=== PATIENT | female | born 1970 | race African-American/Black ===

== ENCOUNTER 2016-08-15 10:03 | Observation (INO) | payer MEDICAID, OTHER ==
[~2016-08-15] VITALS: Ht 160 cm; Wt 89.0 kg
[~2016-08-15 10:03] MED LIST: GABA300C3 PO; LEVE500 PO; MECL25 PO; MELO15 PO; ONDA4 PO; ZOLO50TA PO
[2016-08-15 10:05] VITALS: BP 128/62; PULSE 79; RESP 16; TEMP 97.9; O2SAT 98
[2016-08-15] MEDS ORDERED: SODIUM CHLOR 0.9% 1000 ML INJ 1,000 ML IV ONE (10:25)
[2016-08-15] MEDS ORDERED: ONDANSETRON HCL 4 MG/2 ML VIAL IVP ONE (10:30)
[2016-08-15] MEDS ORDERED: methylPREDNISolone SO SUCC INJ 500 MG in DEXTROSE 5% IN WATER 100ML INJ 100 ML IV ONE ×2 (10:30)
[2016-08-15] MEDS ORDERED: SODIUM CHLORIDE 0.9% FLUSH 10 ML FLUSH IVF PRN (10:30)
--- NOTE | 2016-08-15 10:32 | PD ---
HPI Chief Complaint: Numbness/Tingling Time Seen by Provider: 10:11 Travel History International Travel<30 days: No Contact w/Intl Traveler<30days: No Traveled to known affect area: No History of Present Illness HPI The patient is a 46-year-old [place] female who presents emergency department with multiple complaints. The patient states she was diagnosed with multiple sclerosis last year at [facility] in [facility]. The patient states she is advised to follow-up with a neurologist, however, has been unable to see a neurologist with her insurance. The patient was filling out paperwork earlier today, and an attempt to get in and see specialists for her multiple sclerosis and lupus, and she developed recurrent symptoms. The patient complains of numbness and tingling to the upper and lower extremities, back pain that goes from the thoracic to lumbar region, and headache. She also complains of intermittent visual problems. The patient had similar symptoms last year was seen at [facility], where she had an MRI of multiple blood test performed. The patient is on medications for seizures, neuropathy, and depression, but takes no current medications for multiple sclerosis or lupus. The patient states she was recently diagnosed with lupus at [facility]. The patient denies any urinary or fecal incontinence. The patient denies current chest pain, pressure breath, nausea, vomiting, or abdominal pain. She does complain of a mild throbbing headache. PFSH Past Medical History Narrative Medical Multiple sclerosis, lupus, seizures, neuropathy, depression Heart Rhythm Problems: No Cardiac Catheterization: No Cardiovascular Problems: No High Cholesterol: No Congestive Heart Failure: No Diabetes: No Diminished Hearing: No Hypertension: No Myocardial Infarction: No Seizures: Yes ?: Not LMP: 08/12/16 : 3 Para: 2 Miscarriage: 1 Past Surgical History Coronary Artery Bypass Graft: No Gynecologic Surgery: Yes (A SURG TO PREVENT PREGNACY) Social History Alcohol Use: No Tobacco Use: Yes Substance Use: No Allergies-Medications (Allergen,Severity, Reaction): Coded Allergies: No Known Allergies (Verified , 12/08/12) Reported Meds & Prescriptions Reported Meds & Active Scripts Active Review of Systems Except as stated in HPI: all other systems reviewed are Neg General / Constitutional: No: Fever Eyes: Positive: Blurred Vision (intermittent) HENT: Positive: Headaches, Vertigo, Lightheadedness Cardiovascular: No: Chest Pain or Discomfort Respiratory: No: Wheezing Gastrointestinal: No: Nausea, Vomiting, Abdominal Pain Genitourinary: No: Incontinence Musculoskeletal: Positive: Weakness Neurologic: Positive: Weakness, Dizziness, Headache, Paresthesia, Sensory Disturbance, No: Change in Mentation, Slurred Speech Psychiatric: Positive: Depression Physical Exam Narrative GENERAL: Awake, alert, 46-year-old female appears her stated age and is in no acute respiratory distress. SKIN: Focused skin assessment warm/dry. HEAD: Atraumatic. Normocephalic. EYES: Pupils equal and round. Pupils are 4 mm bilateral and reactive. ENT: No nasal bleeding or discharge. Mucous membranes pink and moist. NECK: Trachea midline. No JVD. Patient is able to place her chin to her chest as well as rotate to left and right. No meningeal signs. CARDIOVASCULAR: Regular rate and rhythm. No murmur appreciated. RESPIRATORY: No accessory muscle use. Clear to auscultation. Breath sounds equal bilaterally. GASTROINTESTINAL: Abdomen soft, non-tender, nondistended. No rebound tenderness. Back: Mild tenderness over the mid lumbar and thoracic vertebrae, no obvious step-off. Tattoo noted over the lower back. MUSCULOSKELETAL: No obvious deformities. No clubbing. No cyanosis. No edema. Strength with flexion of the great toes bilateral is 4+5. Plantar flexion is 5/ 5. Extension knees is 5/5. Flexion of the hips bilaterals 5/5. Electrician Wiring strength is 5+5. Extension of the elbows is 5+5, flexion of the elbows is 5/5 bilaterally. NEUROLOGICAL: Awake and alert. No obvious cranial nerve deficits. Motor grossly within normal limits. Normal speech. PSYCHIATRIC: Appropriate mood and affect; insight and judgment normal. Data Data Last Documented VS Vital Signs Date Time Temp Pulse Resp B/P Pulse Ox O2 Delivery O2 Flow Rate FiO2 08/15/16 10:59 98.3 68 20 118/69 100 Orders Electrocardiogram (08/15/16 10:25) Complete Blood Count With Diff (08/15/16 10:25) Comprehensive Metabolic Panel (08/15/16 10:25) Magnesium (Mg) (08/15/16 10:25) Ckmb (Isoenzyme) Profile (08/15/16 10:25) Troponin I (08/15/16 10:25) Urinalysis - C+S If Indicated (08/15/16 10:25) Ecg Monitoring (08/15/16 10:25) Iv Access Insert/Monitor (08/15/16 10:25) Oximetry (08/15/16 10:25) Ondansetron Inj (Zofran Inj) (08/15/16 10:30) Sodium Chloride 0.9% Flush (Ns Flush) (08/15/16 10:30) Sodium Chlor 0.9% 1000 Ml Inj (Ns 1000 M (08/15/16 10:25) Westergren Sedimentation Rate (08/15/16 10:25) Methylprednisolone So Succ Inj (Solumedr (08/15/16 10:30) CKMB (08/15/16 10:25) CKMB% (08/15/16 10:25) Mri Brain W&W/O Contrast (08/15/16 ) Consult Neurology (08/15/16 ) Admit Order (Ed Use Only) (08/15/16 12:03) Labs Laboratory Tests Test 08/15/16 08/15/16 10:25 11:00 White Blood Count 8.0 TH/MM3 Red Blood Count 4.71 MIL/MM3 Hemoglobin 12.5 GM/DL Hematocrit 38.0 % Mean Corpuscular Volume 80.7 FL Mean Corpuscular Hemoglobin 26.5 PG Mean Corpuscular Hemoglobin 32.8 % Concent Red Cell Distribution Width 15.1 % Platelet Count 318 TH/MM3 Mean Platelet Volume 7.6 FL Neutrophils (%) (Auto) 46.2 % Lymphocytes (%) (Auto) 43.8 % Monocytes (%) (Auto) 8.4 % Eosinophils (%) (Auto) 0.7 % Basophils (%) (Auto) 0.9 % Neutrophils # (Auto) 3.7 TH/MM3 Lymphocytes # (Auto) 3.5 TH/MM3 Monocytes # (Auto) 0.7 TH/MM3 Eosinophils # (Auto) 0.1 TH/MM3 Basophils # (Auto) 0.1 TH/MM3 CBC Comment DIFF FINAL Differential Comment Erythrocyte Sedimentation Rate 19 mm/hr Sodium Level 139 MEQ/L Potassium Level 4.1 MEQ/L Chloride Level 105 MEQ/L Carbon Dioxide Level 26.7 MEQ/L Anion Gap 7 MEQ/L Blood Urea Nitrogen 13 MG/DL Creatinine 1.00 MG/DL Estimat Glomerular Filtration 73 ML/MIN Rate Random Glucose 99 MG/DL Calcium Level 9.2 MG/DL Magnesium Level 1.8 MG/DL Total Bilirubin 0.3 MG/DL Aspartate Amino Transf 18 U/L (AST/SGOT) Alanine Aminotransferase 23 U/L (ALT/SGPT) Alkaline Phosphatase 79 U/L Total Creatine Kinase 131 U/L Creatine Kinase MB 0.9 NG/ML Troponin I LESS THAN 0.02 NG/ML Total Protein 7.7 GM/DL Albumin 3.6 GM/DL Human Chorionic Gonadotropin, LESS THAN 1 Quant MIU/ML Urine Color YELLOW Urine Turbidity CLEAR Urine pH 5.0 Urine Specific [place] 1.018 Urine Protein NEG mg/dL Urine Glucose (UA) NEG mg/dL Urine Ketones NEG mg/dL Urine Occult Blood NEG Urine Nitrite NEG Urine Bilirubin NEG Urine Urobilinogen LESS THAN 2.0 MG/DL Urine Leukocyte Esterase NEG Urine RBC LESS THAN 1 /hpf Urine WBC 1 /hpf Urine Mucus FEW /lpf Microscopic Urinalysis Comment CULT NOT INDICATED Urine Opiates Screen POS Urine Barbiturates Screen NEG Urine Amphetamines Screen NEG Urine Benzodiazepines Screen NEG Urine Cocaine Screen NEG Urine Cannabinoids Screen NEG MDM Medical Decision Making Medical Screen Exam Complete: Yes Emergency Medical Condition: Yes Medical Record Reviewed: Yes Interpretation(s) EKG reveals normal sinus rhythm with a rate of 64. No ischemic changes or ectopy noted. Laboratory Tests Test 08/15/16 08/15/16 10:25 11:00 White Blood Count 8.0 TH/MM3 Red Blood Count 4.71 MIL/MM3 Hemoglobin 12.5 GM/DL Hematocrit 38.0 % Mean Corpuscular Volume 80.7 FL Mean Corpuscular Hemoglobin 26.5 PG Mean Corpuscular Hemoglobin 32.8 % Concent Red Cell Distribution Width 15.1 % Platelet Count 318 TH/MM3 Mean Platelet Volume 7.6 FL Neutrophils (%) (Auto) 46.2 % Lymphocytes (%) (Auto) 43.8 % Monocytes (%) (Auto) 8.4 % Eosinophils (%) (Auto) 0.7 % Basophils (%) (Auto) 0.9 % Neutrophils # (Auto) 3.7 TH/MM3 Lymphocytes # (Auto) 3.5 TH/MM3 Monocytes # (Auto) 0.7 TH/MM3 Eosinophils # (Auto) 0.1 TH/MM3 Basophils # (Auto) 0.1 TH/MM3 CBC Comment DIFF FINAL Differential Comment Erythrocyte Sedimentation Rate 19 mm/hr Sodium Level 139 MEQ/L Potassium Level 4.1 MEQ/L Chloride Level 105 MEQ/L Carbon Dioxide Level 26.7 MEQ/L Anion Gap 7 MEQ/L Blood Urea Nitrogen 13 MG/DL Creatinine 1.00 MG/DL Estimat Glomerular Filtration 73 ML/MIN Rate Random Glucose 99 MG/DL Calcium Level 9.2 MG/DL Magnesium Level 1.8 MG/DL Total Bilirubin 0.3 MG/DL Aspartate Amino Transf 18 U/L (AST/SGOT) Alanine Aminotransferase 23 U/L (ALT/SGPT) Alkaline Phosphatase 79 U/L Total Creatine Kinase 131 U/L Creatine Kinase MB 0.9 NG/ML Troponin I LESS THAN 0.02 NG/ML Total Protein 7.7 GM/DL Albumin 3.6 GM/DL Human Chorionic Gonadotropin, LESS THAN 1 Quant MIU/ML Urine Color YELLOW Urine Turbidity CLEAR Urine pH 5.0 Urine Specific [place] 1.018 Urine Protein NEG mg/dL Urine Glucose (UA) NEG mg/dL Urine Ketones NEG mg/dL Urine Occult Blood NEG Urine Nitrite NEG Urine Bilirubin NEG Urine Urobilinogen LESS THAN 2.0 MG/DL Urine Leukocyte Esterase NEG Urine RBC LESS THAN 1 /hpf Urine WBC 1 /hpf Urine Mucus FEW /lpf Microscopic Urinalysis Comment CULT NOT INDICATED Urine Opiates Screen POS Urine Barbiturates Screen NEG Urine Amphetamines Screen NEG Urine Benzodiazepines Screen NEG Urine Cocaine Screen NEG Urine Cannabinoids Screen NEG Last Impressions Thoracic Spine MRI 08/15/16 Signed Impressions: Service Date/Time: Monday, August 15, 2016 14:34 - CONCLUSION: 1. No focal signal abnormality or enhancement within the thoracic cord to suggest demyelinating plaque formation. 2. Mild chronic compression deformity involving T8. Ronald Maurice MD Cervical Spine MRI 08/15/16 0000 Signed Impressions: Service Date/Time: Monday, August 15, 2016 14:34 - CONCLUSION: 1. No acute disease. 2. No focal signal abnormalities or areas of abnormal enhancement to suggest demyelinating plaques within the cervical cord. Ronald Maurice MD Brain MRI 08/15/16 0000 Signed Impressions: Service Date/Time: Monday, August 15, 2016 14:34 - CONCLUSION: 1. No acute intracranial abnormality identified. 2. No significant, abnormal T2 signal identified within the white matter. Sadiq Gordon MD Differential Diagnosis Differential diagnosis includes multiple sclerosis exacerbation, lupus exacerbation, neuropathy, UTI, hyponatremia, hypocalcemia, hyperkalemia, hypokalemia, hyperkalemia. Narrative Course IV was established, labs are drawn and sent, and the patient was placed on cardiac telemetry monitoring and continuous pulse oximetry monitoring. EKG was ordered and interpreted. We attempted to obtain MRI results from [facility]. The patient was administered Solu-Medrol 500 mg intravenously. Laboratory evaluation is unremarkable. MRI results from [facility] reveal abnormal white matter signal change that recommended repeat MRI 1 year. A call was placed to the on-call neurologist and I discussed the patient with Dr. Mello. The patient's sedimentation rate is normal at 19, I doubt lupus exacerbation, patient's symptoms may be secondary to multiple sclerosis exacerbation. After discussion with the on-call hospitalist, as agreed MRI would be ordered. Physician Communication Physician Communication I discussed the patient with Dr. Flanagan who agrees with admission. Diagnosis Primary Impression: Paresthesia and pain of both upper extremities Admitting Information Admitting Physician Requests: Admit Condition: Stable Jorge Preciado MD August 15, 2016 10:32
[2016-08-15 10:45] LABS: AUTOMATED NEUTROPHIL # 3.7 TH/MM3 (1.8-7.7); BASOPHIL # 0.1 TH/MM3 (0-0.2); BASOPHIL % 0.9 % (0.0-2.0); EOSINOPHIL # 0.1 TH/MM3 (0-0.4); EOSINOPHIL % 0.7 % (0.0-4.0); HEMO FLAGS DIFF FINAL; LYMPH % 43.8 % (9.0-44.0); LYMPHOCYTE # 3.5 TH/MM3 (1.0-4.8); MEAN CELL VOLUME 80.7 FL (80.0-100.0); MEAN CORPUSCULAR HEMOGLOBIN 26.5 PG (27.0-34.0); MEAN CORPUSCULAR HGB CONC 32.8 % (32.0-36.0); MONO % 8.4 % (0.0-8.0); NEUT % 46.2 % (16.0-70.0); PLATELET COUNT 318 TH/MM3 (150-450); RED BLOOD COUNT 4.71 MIL/MM3 (4.00-5.30); RED CELL DISTRIBUTION WIDTH 15.1 % (11.6-17.2)
[2016-08-15 10:59] VITALS: BP 118/69; PULSE 68; RESP 20; TEMP 98.3; O2SAT 100
[2016-08-15 11:10] LABS: ANION GAP 7 MEQ/L (5-15); AST (GOT) 18 U/L (15-37); BICARBONATE 26.7 MEQ/L (21.0-32.0); BLOOD UREA NITROGEN 13 MG/DL (7-18); CHLORIDE 105 MEQ/L (98-107); GLOMERULAR FILTRATION RATE 73 ML/MIN (>89); MAGNESIUM 1.8 MG/DL (1.5-2.5); POTASSIUM 4.1 MEQ/L (3.5-5.1); SODIUM (NA) 139 MEQ/L (136-145)
[2016-08-15 11:11] LABS: BLOOD, URINE NEG (NEG); COMMENT (UR) CULT NOT INDICATED; CULTURE IF INDICATED CULT NOT INDICATED; GLUCOSE,URINE NEG (NEG); KETONE, URINE NEG (NEG); MUCUS URINE FEW /lpf (OCC); NITRITE,URINE NEG (NEG); URINE COLOR YELLOW (YELLW/STRAW)
[2016-08-15 11:14] LABS: ALKALINE PHOSPHATASE 79 U/L (45-117); ALT (GPT) 23 U/L (10-53); CREATINE KINASE 131 U/L (26-192); TOTAL BILIRUBIN ADULT 0.3 MG/DL (0.2-1.0)
[2016-08-15 11:26] LABS: CKMB 0.9 NG/ML (0.5-3.6)
[2016-08-15 14:03] VITALS: BP 120/58; PULSE 58; RESP 16; TEMP 97.8; O2SAT 100
--- NOTE | 2016-08-15 14:40 | HHI.HP ---
[facility]Staff Admission Diagnosis multiple sclerosis exacerbation, generalized weakness Diagnoses: Chief Complaint: generalized aches, tingling /numbness. weakness, pain Travel History International Travel<30 Days: No Contact w/Intl Traveler <30 Da: No Traveled to Known Affected Are: No History of Present Illness patient is a 46 years old female from [place] who for the past 21/2 weeks now has been complaining of feeling of fatigue, generalized weakness, headaches , back pain from neck down associated with tingling and numbness worse when she tries to move around and get active. . Unclear why. Denies previous trauma. She was seen in the past -in 2014 at [facility]. She was DC with OP ff up but the neurologist does not take her insurance. She had EEG done, MRI brain shows findings suggestive of demyelination process , diagnosed with seizure disorder, neuropathy and depression - was placed on Gabapentin, Keppra. Ondansetron, Sertraline and at one point was also on Vimpat. Last seizure was 2 years ago. Baseline states she is ambulatory and occasionally uses a cane. she denies any urinary or fecal incontinence, or any myelopathy MRI then shows findings suggestive of demyelination lesion Lately past week with worsening numbness and tingling and low back discomfort which prompted to come in here and admitted for further work up and evaluation. Does not recall being placed on steroids in the past Review of Systems Constitutional: DENIES: Diaphoretic episodes, Fatigue, Fever, Weight gain, Weight loss, Chills, Dizziness, Change in appetite, Night Sweats Endocrine: COMPLAINS OF: Abnorml menstrual pattern (irregular cycles) Eyes: COMPLAINS OF: Blurred vision (?) Ears, nose, mouth, throat: DENIES: Tinnitus, Hearing loss, Vertigo, Nasal discharge, Oral lesions, Throat pain, Hoarseness, Ear Pain, Running Nose, Epistaxis, Sinus Pain, Toothache, Odynophagia Respiratory: DENIES: Apneas, Cough, Snoring, Wheezing, Hemoptysis, Sputum production, Shortness of breath Cardiovascular: DENIES: Chest pain, Palpitations, Syncope, Dyspnea on Exertion , PND, Lower Extremity Edema, Orthopnea, Claudication Gastrointestinal: DENIES: Abdominal pain, Black stools, Bloody stools, Constipation, Diarrhea, Nausea, Vomiting, Difficulty Swallowing, Anorexia Genitourinary: DENIES: Abnormal vaginal bleeding, Dysmenorrhea, Dyspareunia, Sexual dysfunction, Urinary frequency, Urinary incontinence, Urgency, Hematuria , Dysuria, Nocturia, Vaginal discharge Musculoskeletal: COMPLAINS OF: Muscle aches, Back pain Integumentary: DENIES: Abnormal pigmentation, Pruritus, Rash, Nail changes, Breast masses, Breast skin changes, Nipple discharge Hematologic/lymphatic: DENIES: Bruising, Lymphadenopathy Immunologic/allergic: DENIES: Eczema, Urticaria Neurologic: COMPLAINS OF: Seizures (+ hsitory) Psychiatric: COMPLAINS OF: Depression (+ hsitory) Past Family Social History Past Medical History depression seizure disorder ? MS neuropathy Past Surgical History no major surgeries Reported Medications gabapentin 300 mg tid Keppra 500 mg bid Ondanzetron tid Sertraline 25 mg po daily states at one point was on vimpat Allergies: Coded Allergies: No Known Allergies (Verified , 12/08/12) Family History + for DM, HTN Social History smokes about 1 pack oper day very occasional alcohol use occasionally- edible marijuana Physical Exam Vital Signs Vital Signs Date Time Temp Pulse Resp B/P Pulse Ox O2 Delivery O2 Flow Rate FiO2 08/15/16 14:03 16 100 Room Air 08/15/16 14:03 97.8 58 16 120/58 100 Room Air 08/15/16 10:59 98.3 68 20 118/69 100 08/15/16 10:05 97.9 79 16 128/62 98 Physical Exam GENERAL: in no apparent distress. SKIN: No rashes, ecchymoses or lesions. Cool and dry. HEAD: Atraumatic. Normocephalic. No temporal or scalp tenderness. EYES: Pupils equal round and reactive. Extraocular motions intact. No scleral icterus. No injection or drainage. ENT: Nose without bleeding, Throat without erythema,. Uvula midline. Airway patent. NECK: Trachea midline. No JVD or lymphadenopathy. Supple, nontender, no meningeal signs. CARDIOVASCULAR: Regular rate and rhythm without murmurs, gallops, or rubs. RESPIRATORY: Clear to auscultation. Breath sounds equal bilaterally. No wheezes , rales, or rhonchi. GASTROINTESTINAL: Abdomen soft, non-tender, nondistended. No hepato-splenomegaly , or palpable masses. No guarding. MUSCULOSKELETAL: Extremities without clubbing, cyanosis, or edema. No joint tenderness, effusion, or edema noted. No calf tenderness. Negative Homans sign bilaterally. NEUROLOGICAL: Awake and alert. Cranial nerves II through XII intact. Moves all extremities spontaneously. Normal speech. Steady gait, DTRs+ grossly no sensory deficits Laboratory Laboratory Tests Test 08/15/16 08/15/16 10:25 11:00 White Blood Count 8.0 Red Blood Count 4.71 Hemoglobin 12.5 Hematocrit 38.0 Mean Corpuscular Volume 80.7 Mean Corpuscular Hemoglobin 26.5 Mean Corpuscular Hemoglobin 32.8 Concent Red Cell Distribution Width 15.1 Platelet Count 318 Mean Platelet Volume 7.6 Neutrophils (%) (Auto) 46.2 Lymphocytes (%) (Auto) 43.8 Monocytes (%) (Auto) 8.4 Eosinophils (%) (Auto) 0.7 Basophils (%) (Auto) 0.9 Neutrophils # (Auto) 3.7 Lymphocytes # (Auto) 3.5 Monocytes # (Auto) 0.7 Eosinophils # (Auto) 0.1 Basophils # (Auto) 0.1 CBC Comment DIFF FINAL Differential Comment Erythrocyte Sedimentation Rate 19 Sodium Level 139 Potassium Level 4.1 Chloride Level 105 Carbon Dioxide Level 26.7 Anion Gap 7 Blood Urea Nitrogen 13 Creatinine 1.00 Estimat Glomerular Filtration 73 Rate Random Glucose 99 Calcium Level 9.2 Magnesium Level 1.8 Total Bilirubin 0.3 Aspartate Amino Transf 18 (AST/SGOT) Alanine Aminotransferase 23 (ALT/SGPT) Alkaline Phosphatase 79 Total Creatine Kinase 131 Creatine Kinase MB 0.9 Troponin I LESS THAN 0.02 Total Protein 7.7 Albumin 3.6 Urine Color YELLOW Urine Turbidity CLEAR Urine pH 5.0 Urine Specific [place] 1.018 Urine Protein NEG Urine Glucose (UA) NEG Urine Ketones NEG Urine Occult Blood NEG Urine Nitrite NEG Urine Bilirubin NEG Urine Urobilinogen LESS THAN 2.0 Urine Leukocyte Esterase NEG Urine RBC LESS THAN 1 Urine WBC 1 Urine Mucus FEW Microscopic Urinalysis Comment CULT NOT INDICATED Result Diagram: 08/15/16 1025 08/15/16 1025 Assessment and Plan Assessment and Plan 46 years old female with complains of Paresthesias- neuropathy, tingling numbness of Upper and lower extremities- chronic worsening over 21/2 weeks - ? history of MS get an MRI of brain and spines. Neurology consult and will hold off on steroids for now.and will wait for Dr. Mitchell's evaluation and recommendation get a PT consult for formal evaluation History of Seizure disorder. continue on Keppra, Gabapentin History of depression. continue on Sertraline d/w patient work up PT consult ? Discussed Condition With patient Isauro Flanagan MD August 15, 2016 14:40 Isauro Flanagan MD August 15, 2016 14:40
[2016-08-15 15:07] LABS: BETA HCG QUANT LESS THAN 1 MIU/ML (0-5)
[2016-08-15] MEDS ORDERED: ONDANSETRON ODT 4 MG TAB PO PRN (15:15)
[2016-08-15] MEDS ORDERED: PILL SPLITTER OTHER PRN ×2 (15:30→17:00)
--- NOTE | 2016-08-15 16:06 | RADRPT ---
EXAM DATE/TIME: 08/15/2016 14:34 [facility] COMPARISON: No previous studies available for comparison. INDICATIONS : Multiple sclerosis. CONTRAST: 18 cc Omniscan (gadodiamide) IV MEDICAL HISTORY : Seizures. Multiple sclerosis. Lupus. SURGICAL HISTORY : None. ENCOUNTER: Initial ACUITY: 1 day PAIN SCORE: 4/10 LOCATION: head TECHNIQUE: Multiplanar, multisequence MRI of the brain was performed both prior to and following the administrat ion of paramagnetic contrast. FINDINGS: CEREBRUM: The ventricles are normal for age. No evidence of midline shift, mass lesion, hemorrhage or acute in farction. No extraaxial fluid collections are seen. The pituitary gland and suprasellar cistern are normal in configuration. WHITE MATTER: No significant signal abnormalities are seen in the white matter. POSTERIOR FOSSA: The cerebellum and brainstem are intact. The 4th ventricle is midline. The cerebellopontine angle is unremarkable. The cerebellar tonsils are normal in position. DIFFUSION IMAGING: No focal areas of restricted diffusion are seen. No evidence of acute infarction. EXTRACRANIAL: The visualized portions of the orbits and paranasal sinuses are unremarkable. POST-CONTRAST: No abnormal areas of parenchymal or dural enhancement. No evidence of blood-brain barrier breakdown. CONCLUSION: 1. No acute intracranial abnormality identified. 2. No significant, abnormal T2 signal identified within the white matter. Sadiq Gordon MD on August 15, 2016 at 15:58 Board Certified Radiologist. This report was verified electronically.
[2016-08-15 16:32] VITALS: BP 122/65; PULSE 68; RESP 20; TEMP 97.6; O2SAT 100
--- NOTE | 2016-08-15 16:35 | RADRPT ---
EXAM DATE/TIME: 08/15/2016 14:34 [facility] COMPARISON: MRI THORACIC SPINE W & W/O CONTRAST, August 15, 2016, 14:34. INDICATIONS : Multiple sclerosis. CONTRAST: 18 cc Omniscan (gadodiamide) IV MEDICAL HISTORY : Lupus. Multiple sclerosis. Seizures. SURGICAL HISTORY : None. ENCOUNTER: Initial ACUITY: 1 day PAIN SCORE: 0/10 LOCATION: neck. TECHNIQUE: Multiplanar, multisequence MRI examination of the cervical spine was performed. FINDINGS: VERTEBRAE: Normal vertebral body height. Homogeneous marrow signal. ALIGNMENT: No evidence of subluxation. CORD: Normal configuration and signal. No focal signal abnormalities or areas of abnormal enhancement to benites ggest demyelinating plaques within the cervical cord. POST FOSSA: The cerebellar tonsils are normal in position. POST-CONTRAST: No abnormal areas of enhancement are seen. C2-C3: The thecal sac has a normal configuration. There is no evidence of disc herniation or spinal canal stenosis. The neural foramina are patent bilaterally. C3-C4: The thecal sac has a normal configuration. There is no evidence of disc herniation or spinal canal s tenosis. The neural foramina are patent bilaterally. C4-C5: The thecal sac has a normal configuration. There is no evidence of disc herniation or spinal canal s tenosis. The neural foramina are patent bilaterally. C5-C6: The thecal sac has a normal configuration. There is no evidence of disc herniation or spinal canal s tenosis. The neural foramina are patent bilaterally. C6-C7: The thecal sac has a normal configuration. There is no evidence of disc herniation or spinal canal s tenosis. The neural foramina are patent bilaterally. C7-T1: The thecal sac has a normal configuration. There is no evidence of disc herniation or spinal canal s tenosis. The neural foramina are patent bilaterally. CONCLUSION: 1. No acute disease. 2. No focal signal abnormalities or areas of abnormal enhancement to suggest demyelinating plaques wi thin the cervical cord. Ronald Maurice MD on August 15, 2016 at 16:30 Board Certified Radiologist. This report was verified electronically.
[2016-08-15] MEDS ORDERED: GADODIAMIDE PF 287 MG/ML 20 ML VIAL (for RAD MRI) IV ONE (16:38)
--- NOTE | 2016-08-15 16:48 | RADRPT ---
EXAM DATE/TIME: 08/15/2016 14:34 [place] COMPARISON: No previous studies available for comparison. INDICATIONS : Mulitple sclerosis. CONTRAST: 18 cc Omniscan (gadodiamide) IV MEDICAL HISTORY : Multiple sclerosis. Lupus. Seizures. SURGICAL HISTORY : None. ENCOUNTER: Initial ACUITY: 1 day PAIN SCORE: 0/10 LOCATION: back. TECHNIQUE: Multiplanar multisequence MRI of the thoracic spine was performed. FINDINGS: VERTEBRA: Mild chronic compression deformity involving T8 is noted. Homogeneous marrow signal. ALIGNMENT: Normal. CORD: Normal position and configuration. No focal signal abnormality or enhancement of the thoracic cord is noted to suggest demyelinating plaque formation. POST CONTRAST: No abnormal areas of contrast enhancement seen. T1-T2: Normal. T2-T3: The thecal sac has a normal diameter. No evidence of disc bulge or protrusion. T3-T4: The thecal sac has a normal diameter. No evidence of disc bulge or protrusion. T4-T5: The thecal sac has a normal diameter. No evidence of disc bulge or protrusion. T5-T6: The thecal sac has a normal diameter. No evidence of disc bulge or protrusion. T6-T7: The thecal sac has a normal diameter. No evidence of disc bulge or protrusion. T7-T8: The thecal sac has a normal diameter. No evidence of disc bulge or protrusion. T8-T9: The thecal sac has a normal diameter. No evidence of disc bulge or protrusion. T9-T10: The thecal sac has a normal diameter. No evidence of disc bulge or protrusion. T10-T11: The thecal sac has a normal diameter. No evidence of disc bulge or protrusion. T11-T12: The thecal sac has a normal diameter. No evidence of disc bulge or protrusion. T12-L1: The thecal sac has a normal diameter. No evidence of disc bulge or protrusion. CONCLUSION: 1. No focal signal abnormality or enhancement within the thoracic cord to suggest demyelinating plaqu e formation. 2. Mild chronic compression deformity involving T8. Ronald Maurice MD on August 15, 2016 at 16:45 Board Certified Radiologist. This report was verified electronically.
[2016-08-15] MEDS: oxyCODONE/ACETAMINOPHEN 5 MG/325 MG TAB PO PRN ×2 (17:01→23:33)
--- NOTE | 2016-08-15 17:38 | PD.CONS ---
History of Present Illness Service Neurology Consult Requested By medical Reason for Consult numbness Primary Care Physician Non-Staff History of Present Illness 46 years old female from [place] comes to ER after leaving the disability office for symptoms of worsening numbness in hands/feet, low back pain. this has been going on for several years but she feels alittle worse over past 2 weeks. has been seen by 2 neurologists in [place]. one dx'd her with MS the other dx'd her with possible sz's. she no longer see's either of them due to insurance/ finances. no fever, wbc nml. esr nml. she gets numbness in hands and feet. occasional dizziness. ambulates independently. no vision loss. no syncope. sz hx not clear. no old records available. Review of Systems as above and admit hp Past Family Social History Past Medical History depression seizure disorder ? MS neuropathy Past Surgical History no major surgeries Reported Medications gabapentin 300 mg tid Keppra 500 mg bid Ondanzetron tid Sertraline 25 mg po daily Allergies: Coded Allergies: No Known Allergies (Verified , 12/08/12) Family History + for DM, HTN Social History smokes about 1 pack per day very occasional alcohol use Past Family Social History Allergies: Coded Allergies: No Known Allergies (Verified , 12/08/12) Active Ordered Medications Current Medications Medications (Trade) Dose Ordered Sig/Padmini Route Start Time Stop Time Status Last Admin Sodium Chloride 2 ml 2 ml UNSCH PRN IVF 08/15/16 10:30 08/15/16 10:54 (NS 1000 ml Inj) 1,000 ml @ 125 mls/hr Q8H ONCE IV 08/15/16 10:25 08/15/16 18:24 08/15/16 10:53 (Keppra) 500 mg Q12HR PO 08/15/16 21:00 (Neurontin) 300 mg BID PO 08/15/16 21:00 (Zoloft) 25 mg DAILY PO 08/16/16 09:00 (Protonix) 40 mg DAILY PO 08/16/16 09:00 (Zofran Odt) 4 mg Q6H PRN PO 08/15/16 15:15 (Pill Splitter) 1 ea UNSCH PRN OTHER 08/15/16 15:30 (Percocet 5-325 Mg) 0.5 tab Q6H PRN PO 08/15/16 16:45 08/15/16 17:01 Exam I&O / VS Vital Signs Date Time Temp Pulse Resp B/P Pulse Ox O2 Delivery O2 Flow Rate FiO2 08/15/16 16:32 97.6 68 20 122/65 100 08/15/16 14:03 16 100 Room Air 08/15/16 14:03 97.8 58 16 120/58 100 Room Air 08/15/16 10:59 98.3 68 20 118/69 100 08/15/16 10:05 97.9 79 16 128/62 98 General: Alert and Oriented, No acute distress Eye: EOMI Respiratory: Non-labored respirations Cardiology: Normal rate Musculoskeletal: ROM Neurologic: Alert, Oriented, Normal motor, No focal defects, CN II-XII intact, Gag reflex normal Psychiatric: Cooperative, Appropriate mood & affect, Normal judgement, Non- suicidal Exam Comments ox 3, follows, no aphasia. eomi, no apd. no drift, no hammertoes. brisk pradeep kj with no clonus, planterflexor response, slightly increased tone in le, gait not assessed 2/2 fall risk Review/Management Diagnosis/Plan: (1) Paresthesia and pain of both upper extremities Plan: mri brain/c/t spine reviewed. not very impressive. possible 1-2 tiny periventricular lesions on rt. no cord lesion chronic problem going on for years not gbs 2/2 chronicity. ms lesser likely with very minimal lesions. recs will give her iv steroids today and can go home on pred taper 30mg po x 3 days, then 20mg po x 3 days, then 10mg po x 3 days, then 5 mg po x 3 days then off p.t. eval f/u labs needs outpatient f/u and records from outside hospital can get outpatient emg/ncv with [facility] that can be co-ordinated by case management d/c planning tomorrow (2) Paresthesia of both lower extremities Artem Tompkins MD August 15, 2016 17:38
[2016-08-15] MEDS ORDERED: methylPREDNISolone SOD SUCC 125 MG/2 ML VIAL IV SCH (17:45)
[2016-08-15 18:19] LABS: AMPHETAMINE, URINE NEG (NEG); BARBITURATES, URINE NEG (NEG); COCAINE, URINE NEG (NEG)
[2016-08-15 19:29] VITALS: BP 127/63; PULSE 90; RESP 18; TEMP 97.3; O2SAT 96
[2016-08-15] MEDS: GABAPENTIN 300 MG CAP PO SCH (21:11)
[2016-08-15] MEDS: levETIRAcetam 500 MG TAB PO SCH (21:11)
[2016-08-16] MEDS ORDERED: methylPREDNISolone SO SUCC INJ 500 MG in DEXTROSE 5% IN WATER 100ML INJ 100 ML IV SCH ×2
[2016-08-16 00:11] VITALS: BP 109/64; PULSE 80; RESP 18; TEMP 98.6; O2SAT 100
[2016-08-16 03:37] VITALS: BP 105/56; PULSE 67; RESP 18; O2SAT 100
[2016-08-16 08:23] VITALS: BP 108/67; PULSE 66; RESP 14; TEMP 97.6; O2SAT 97
[2016-08-16] MEDS ORDERED: PRED5TAB PO (08:43)
--- NOTE | 2016-08-16 08:46 | HHI.PR ---
Subjective Remarks feeling better- -slight headache, no nausea or vomiting discuss with her trial of IV steroids for 2 doses then po steroid taper as Neurology recommendations d/w staff nurse- she up and ambulated to the bathroom- outside the room- 3x independently Objective Vitals Vital Signs Date Time Temp Pulse Resp B/P Pulse Ox O2 Delivery O2 Flow Rate FiO2 08/16/16 08:23 97.6 66 14 108/67 97 08/16/16 03:37 67 18 105/56 100 08/16/16 00:33 16 08/16/16 00:11 98.6 80 18 109/64 100 08/15/16 19:29 97.3 90 18 127/63 96 08/15/16 16:32 97.6 68 20 122/65 100 08/15/16 14:03 16 100 Room Air 08/15/16 14:03 97.8 58 16 120/58 100 Room Air 08/15/16 10:59 98.3 68 20 118/69 100 08/15/16 10:05 97.9 79 16 128/62 98 Result Diagram: 08/15/16 1025 08/15/16 1025 Imaging Last Impressions Thoracic Spine MRI 08/15/16 0000 Signed Impressions: Service Date/Time: Monday, August 15, 2016 14:34 - CONCLUSION: 1. No focal signal abnormality or enhancement within the thoracic cord to suggest demyelinating plaque formation. 2. Mild chronic compression deformity involving T8. Ronald Maurice MD Cervical Spine MRI 08/15/16 0000 Signed Impressions: Service Date/Time: Monday, August 15, 2016 14:34 - CONCLUSION: 1. No acute disease. 2. No focal signal abnormalities or areas of abnormal enhancement to suggest demyelinating plaques within the cervical cord. Ronald Maurice MD Brain MRI 08/15/16 0000 Signed Impressions: Service Date/Time: Monday, August 15, 2016 14:34 - CONCLUSION: 1. No acute intracranial abnormality identified. 2. No significant, abnormal T2 signal identified within the white matter. 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 history of MS MRI of brain and spines- unremarkable started on trial of steroids- d/w patient EMG- NCV studies as OP History of Seizure disorder. continue on Keppra, Gabapentin History of depression. continue on Sertraline PT eval today DC today after 2nd dose of steroids OP ff up with PCP- in [place] OP ff up with neurology- per patient she is looking in to [facility] to assist-c/w OP referral to subspecialty process with her [employer] Isauro Flanagan MD August 16, 2016 08:46
[2016-08-16] MEDS ORDERED: SERTRALINE HCL 50 MG TAB PO SCH (09:00)
[2016-08-16] MEDS ORDERED: PANTOPRAZOLE SOD 40 MG DELAYED RELEASE TAB PO SCH (09:00)
[2016-08-16] MEDS ORDERED: PANT40TA3 PO (09:12)
[2016-08-16] MEDS ORDERED: oxyCODONE/ACETAMINOPHEN 5 MG/325 MG TAB PO PRN ×2 (09:15→14:00)
[2016-08-16] MEDS ORDERED: OXYC1TAB63 PO (09:16)
[2016-08-16] MEDS: levETIRAcetam 500 MG TAB PO SCH (09:42)
[2016-08-16] MEDS: GABAPENTIN 300 MG CAP PO SCH (09:42)
--- NOTE | 2016-08-16 18:04 | EKG ---
Date Performed: 08/15/2016 Time Performed: 10:41:55 PTAGE: 46 years EKG: Sinus rhythm NORMAL ECG Compared to prior tracing no significant change. PREVIOUS TRACING on 12/08/2012. DOCTOR: Donnell Brooks Interpretating Date/Time 08/16/2016 18:03:44
[2016-09-25] MEDS ORDERED: MECL12.574 PO (14:42)
[2016-09-25] MEDS ORDERED: GABA300C5 PO (14:42)
[2016-09-25] MEDS ORDERED: ZOLO25TA PO (14:42)
[2016-09-25] MEDS ORDERED: LEVE250 PO (14:42)
[2016-09-25] MEDS ORDERED: ONDA1TAB16 (14:42)
[2016-09-25] MEDS ORDERED: DEPO150I IM (15:04)
[2016-09-26] MEDS ORDERED: DEPO150I IM (14:37)
== END 2016-08-16 12:21 | disposition home or self-care (01) ==
LOC: NEPE 10:03 → NEDA 12:04 → INTOOBSV 12:04 → NEPGCP 16:27
PROVIDERS: ADMIT Internal Medicine; ATTEND Internal Medicine
DX: R20.2 Paresthesia of skin (principal); R20.0 Anesthesia of skin; G62.9 Polyneuropathy, unspecified; F32.9 Major depressive disorder, single episode, unspecified; G40.909 Epilepsy, unspecified, not intractable, without status epilepticus; F17.200 Nicotine dependence, unspecified, uncomplicated
CPT/HCPCS: 70553; 72156; 72157; 80053; 80307; 81001; 82550; 82552; 82607; 83735; 84443; 84484; 84702; 85025; 85652; 86140; 93005; 96361; 96374; 97162; 99285; A9579; G0378; G8987; G8988; J2405; J2930; J7030